=== PATIENT | female | born 1985 | race Caucasian/White ===

== ENCOUNTER 2018-11-11 22:49 | Outpatient (CLI) | payer MEDICAID ==
[~2018-11-11] VITALS: Ht 152.4 cm; Wt 85.3 kg
[2018-11-11] MEDS ORDERED: PREN-93 PO (23:07)
[2018-11-11 23:09] VITALS: BP 105/61; PULSE 78; RESP 20
--- NOTE | 2018-11-12 00:55 | PN ---
Triage Information Date/Time Reason for visit: back pain Weeks of Gestation 31 weeks by 11/11/18 US /Para Diabetes: none Hypertention: none Objective Vital Signs Date Temp Pulse Resp B/P (MAP) Pulse Ox O2 O2 Flow FiO2 Time Delivery Rate 11/11/18 98.1 78 20 105/61 Room Air 23:09 (76) Contractions: >10 Minutes Apart Results/Medications Results 24 hrs Laboratory Tests Test 11/11/18 22:45 Urine Color YELLOW Urine Clarity SLIGHTLY CLOUDY A Urine pH 6.0 Urine Specific [place] 1.021 Urine Ketones TRACE A Urine Nitrite NEGATIVE Urine Bilirubin NEGATIVE Urine Urobilinogen 2+ H Urine Leukocyte Esterase NEGATIVE Urine Microscopic RBC 0 Urine Microscopic WBC 4 Urine Squamous Epithelial Cells MODERATE Urine Hemoglobin NEGATIVE Urine Glucose NEGATIVE Urine Total Protein NEGATIVE Assessment/Plan IUP 31 weeks by today US, patient unsure about dates sve close/thick no bleeding results reviewed US done patient feeling better BPP is done discharge home, labor percationts are given Follow up in 1 week with [facility] [employer] clininc instructiont are given CANDACE BARNEY MD Nov 12, 2018 00:55
--- NOTE | 2018-11-12 01:38 | TRIAGE ---
OB Triage Datetime Report Generated by CPN: 11/12/2018 01:38 Datetime: 11/12/2018 01:24 Labor Evaluation Frequency: 0 Monitor Mode: External Heart Rate FHR Baseline Rate: 125 Monitor Mode: External US Variability: Moderate 6-25 bpm Accelerations: 15X15 Decelerations: None Category: Category I Datetime: 11/12/2018 01:17 Monitor Mode: External US Datetime: 11/12/2018 01:00 Labor Evaluation Frequency: 0 Monitor Mode: External Heart Rate FHR Baseline Rate: 125 Monitor Mode: External US Variability: Moderate 6-25 bpm Accelerations: 15X15 Comments: broken tracing Pain Assessment Pain Scale: 0 Pain Presence: None/Denies Pain Type: N/A Datetime: 11/12/2018 00:54 Comments: difficult to maintain continuous monitoring due to frequent maternal repositioning Datetime: 11/12/2018 00:08 Vaginal Exam Dilatation (cms): 0.0 Effacement (%): 0 Station: -3 Exam By: dr arroyo Membrane Status: Intact Vaginal Bleeding: None Cervix, Consistency: Firm Cervix, Position: Posterior Presentation 'A': Cephalic Datetime: 11/12/2018 00:00 Labor Evaluation Frequency: 0 Monitor Mode: External Heart Rate FHR Baseline Rate: 125 Monitor Mode: External US Variability: Moderate 6-25 bpm Accelerations: 15X15 Decelerations: None Category: Category I Datetime: 11/11/2018 23:23 Labor Evaluation Frequency: 0 Monitor Mode: External Heart Rate FHR Baseline Rate: 125 Monitor Mode: External US Variability: Moderate 6-25 bpm Accelerations: 15X15 Decelerations: None Category: Category I Comments: U/S TECH AT BEDSIDE Datetime: 11/11/2018 23:20 EGA: 31.6 Datetime: 11/11/2018 23:18 Time of Arrival: 11/11/2018 22:40 Arrived By: Ambulatory Arrived From: Home Chief Complaint: back and abd pain Movement: Present Contractions: Irregular Time Contractions Began: 11/11/2018 16:00 Contractions: 30 MIN Rupture of Membranes: Denies Vaginal Bleeding: None Vaginal Discharge: Denies Recent Sexual Intercouse: Denies Abdominal Trauma: Not Applicable Patient Complaints: Contractions; Back Pain Time Provider Notified: 11/11/2018 23:04 Provider Notified: GALSTYAN Initial Plan: NST, U/A Datetime: 11/11/2018 23:00 Assessment Type: Triage Maternal Assessment Level of Consciousness: Fully Conscious DTR's/Clonus: DTRs 2+; No Clonus Headache: Denies Blurred Vision: No Respiratory Effort: Unlabored; Regular Rhythm; Equal Expansion Breath Sounds, Left: Clear and Equal Breath Sounds, Right: Clear and Equal Nausea/Vomiting: Denies RUQ Epigastric Pain: Denies Lower Extremities Edema: None Degree: None Upper Extremities Edema: None Degree: None Facial Edema: None Fall Risk Assessment History of Falling: (0) No Secondary Diagnosis: (0) No Ambulatory Aid: (0) Bedrest/Nurse Assist IV Therapy: (0) No Gait: (0) Normal/Bedrest/Immobile Mental Status: (0) Oriented to Own Ability Fall Score: 0 Fall Risk Score Definition: No Risk: No action required Datetime: 11/11/2018 22:58 Pain Assessment Pain Scale: 5 Pain Presence: Intermittent Pain Type: Contraction Pain Location: Abdomen; Back Pain Goal: 3 Pain Relief Measures: Comfort Measures
== END 2018-11-12 01:30 | disposition home or self-care (01) ==
LOC: L-D 22:49 → OBT 22:49
PROVIDERS: ATTEND Obstetrics & Gynecology
DX: O26.893 Other specified pregnancy related conditions, third trimester (principal); M54.9 Dorsalgia, unspecified; O36.8330 Maternal care for abnormalities of the fetal heart rate or rhythm, third trimester, not applicable or unspecified; Z3A.31 31 weeks gestation of pregnancy
CPT/HCPCS: 76815; 76818; 80307; 81001; Z7500; 81003; G0463

== ENCOUNTER 2018-11-17 06:40 | Outpatient (CLI) | payer MEDICAID ==
--- NOTE | 2018-11-12 05:28 | PN ---
Triage Information Date/Time back pain Reason for visit: back pain, no CVA tenderness Weeks of Gestation 31 11/10 /Para Diabetes: none Hypertention: none Disposition: IUP 11/10 with back pain, recieved IV hydration, improved, US done and reviewed, sve close/thick, discharge home, follow up in 1 week, labor percationts are given CANDACE BARNEY MD Nov 12, 2018 05:28
[~2018-11-17] VITALS: Ht 152.4 cm; Wt 83.3 kg
[~2018-11-17 06:40] MED LIST: PREN-93 PO
[2018-11-17 06:57] VITALS: BP 99/65; PULSE 75; RESP 18
--- NOTE | 2018-11-17 09:26 | TRIAGE ---
OB Triage Datetime Report Generated by CPN: 11/17/2018 09:25 Datetime: 11/17/2018 08:57 Stage of : OB Triage Datetime: 11/17/2018 07:54 Labor Evaluation Frequency: 0 Monitor Mode: External Pattern: Normal: <= 5 Contractions in 10 Minutes Resting Tone [place]: Relaxed Heart Rate FHR Baseline Rate: 125 Monitor Mode: External US Variability: Moderate 6-25 bpm Accelerations: 10X10 Decelerations: None Category: Category I Pain Assessment Pain Scale: 0 Pain Presence: None/Denies Pain Type: N/A Pain Goal: 3 Pain Relief Measures: Comfort Measures Datetime: 11/17/2018 07:01 Time of Arrival: 11/17/2018 06:39 EGA: 32.5 Arrived By: Wheelchair Arrived From: Home Chief Complaint: c/o RUQ and back pain w/ vomiting beg 0500 Movement: Present Contractions: Denies/Absent Rupture of Membranes: Denies Vaginal Bleeding: None Vaginal Discharge: Denies Recent Sexual Intercouse: Denies Abdominal Trauma: Not Applicable Patient Complaints: Back Pain; Nausea; Vomiting Time Provider Notified: 11/17/2018 06:45 Provider Notified: Dr Hairston Initial Plan: EFM,UA,URINE CULTURE, CBC,CMP,URIC ACID,AMYLASE,LIPASE,ABD U/S Datetime: 11/17/2018 06:52 Stage of : OB Triage Maternal Assessment Level of Consciousness: Keenly Alert, Responsive Headache: Denies Blurred Vision: No Nausea/Vomiting: Present RUQ Epigastric Pain: Denies Facial Edema: None Monitor Mode: External Resting Tone [place]: Relaxed Heart Rate FHR Baseline Rate: 130 Monitor Mode: External US Pain Assessment Pain Scale: 7 Pain Presence: Constant Pain Type: Sharp; Stabbing Pain Location: Abdomen; Back Pain Assessment Comments: C/ SM EMESIS Datetime: 11/17/2018 06:45 Stage of : OB Triage Datetime: 11/11/2018 23:20 EGA: 31.6 Datetime: 11/11/2018 23:00 Fall Risk Assessment Fall Score: 0 Fall Risk Score Definition: No Risk: No action required
--- NOTE | 2018-11-17 10:32 | PN ---
Triage Information Date/Time 11/17/18 Reason for visit: Abd/pelvic pain (RUQ pain with vomiting x1) Weeks of Gestation 32w5d /Para Diabetes: none Hypertention: none Objective Vital Signs Date Temp Pulse Resp B/P (MAP) Pulse Ox O2 O2 Flow FiO2 Time Delivery Rate 11/17/18 97.8 75 18 99/65 (76) Room Air 06:57 Heart Rate: 140's Contractions: None Results/Medications Result Diagram: 11/17/18 0744 11/17/18 0744 Results 24 hrs Laboratory Tests Test 11/17/18 06:45 11/17/18 07:44 Urine Color YELLOW Urine Clarity CLOUDY A Urine pH 7.0 Urine Specific [place] 1.010 Urine Ketones NEGATIVE Urine Nitrite NEGATIVE Urine Bilirubin NEGATIVE Urine Urobilinogen 1+ H Urine Leukocyte Esterase 1+ H Urine Microscopic RBC 4 Urine Microscopic WBC 11 H Urine Squamous Epithelial Cells MANY A Urine Bacteria FEW A Urine Mucus FEW A Urine Hemoglobin NEGATIVE Urine Glucose NEGATIVE Urine Total Protein 1+ H White Blood Count 8.1 Red Blood Count 4.09 L Hemoglobin 12.0 Hematocrit 35.8 L Mean Corpuscular Volume 87.5 Mean Corpuscular Hemoglobin 29.3 Mean Corpuscular Hemoglobin Concent 33.5 Red Cell Distribution Width 14.0 Platelet Count 234 Mean Platelet Volume 11.1 H Immature Granulocytes % 0.500 H Neutrophils % 76.6 Lymphocytes % 15.0 Monocytes % 6.5 Eosinophils % 1.0 Basophils % 0.4 Nucleated Red Blood Cells % 0.0 Immature Granulocytes # 0.040 H Neutrophils # 6.2 Lymphocytes # 1.2 Monocytes # 0.5 Eosinophils # 0.1 Basophils # 0.0 Nucleated Red Blood Cells # 0.0 Sodium Level 139 Potassium Level 3.5 Chloride Level 108 Carbon Dioxide Level 24 Anion Gap 7 Blood Urea Nitrogen 6 L Creatinine 0.51 Est Glomerular Filtrat Rate mL/min > 60 Glucose Level 94 Uric Acid 3.4 Calcium Level 9.0 Total Bilirubin 0.6 Direct Bilirubin 0.00 Indirect Bilirubin 0.6 Aspartate Amino Transf (AST/SGOT) 18 Alanine Aminotransferase (ALT/SGPT) 19 Alkaline Phosphatase 135 H Total Protein 6.4 Albumin 3.5 Globulin 2.90 Albumin/Globulin Ratio 1.20 Amylase Level 100 Lipase 302 H Imaging Results cholelithiasis Disposition: Discharge Assessment/Plan A IUP 32w5d RUQ pain cholelithiasis P discharge home ,f/u with her OB low fat diet increase fluid intake KWAN RODRIGUEZ MD Nov 17, 2018 10:32
== END 2018-11-17 09:10 | disposition home or self-care (01) ==
LOC: OBT 06:40 → L-D 06:40 → OBT 09:10
PROVIDERS: ATTEND Obstetrics & Gynecology
DX: O99.613 Diseases of the digestive system complicating pregnancy, third trimester (principal); K80.20 Calculus of gallbladder without cholecystitis without obstruction; R10.11 Right upper quadrant pain; Z3A.32 32 weeks gestation of pregnancy
CPT/HCPCS: 76705; 80053; 81001; 82150; 83690; 84560; 85025; Z7500; G0463

== ENCOUNTER 2018-11-17 12:50 | Outpatient (CLI) | payer MEDICAID ==
[~2018-11-17] VITALS: Ht 152.4 cm; Wt 84.3 kg
[2018-11-17 13:08] VITALS: BP 101/64; PULSE 90; Ht 152.4 cm; Wt 84.3 kg
--- NOTE | 2018-11-17 14:54 | TRIAGE ---
OB Triage Datetime Report Generated by CPN: 11/17/2018 14:54 Datetime: 11/17/2018 14:30 Frequency: x1 Monitor Mode: External Duration (sec)2399: 40 Quality: Mild Pattern: Normal: <= 5 Contractions in 10 Minutes Resting Tone [place]: Relaxed FHR Baseline Rate: 130 Monitor Mode: External US FHR Baseline Changes: No Baseline Change Variability: Moderate 6-25 bpm Accelerations: 15X15 Decelerations: None Category: Category I Pain Scale: 0 Pain Presence: None/Denies Pain Type: N/A Pain Goal: 3 Membrane Status: Intact Datetime: 11/17/2018 14:29 Comments: Dr. Hairston at bedside to review strip, BPP and EFW. New order to send pt home Datetime: 11/17/2018 14:24 Comments: Pt sitting up eating her sandwich Datetime: 11/17/2018 14:21 Comments: Pt request something to eat, sandwich provided and juices. Datetime: 11/17/2018 13:03 Stage of : OB Triage Assessment Type: Triage Level of Consciousness: Keenly Alert, Responsive DTR's/Clonus: DTRs 2+; No Clonus Headache: Denies Blurred Vision: No Respiratory Effort: Unlabored; Regular Rhythm; Equal Expansion Breath Sounds, Left: Clear and Equal Breath Sounds, Right: Clear and Equal Nausea/Vomiting: Denies RUQ Epigastric Pain: Denies Facial Edema: None Temperature Route: Axillary History of Falling: (0) No Secondary Diagnosis: (0) No Ambulatory Aid: (0) Bedrest/Nurse Assist IV Therapy: (0) No Gait: (0) Normal/Bedrest/Immobile Mental Status: (0) Oriented to Own Ability Fall Score: 0 Fall Risk Score Definition: No Risk: No action required Frequency: 0 Monitor Mode: External Pattern: Normal: <= 5 Contractions in 10 Minutes Resting Tone [place]: Relaxed FHR Baseline Rate: 135 Monitor Mode: External US Variability: Moderate 6-25 bpm Pain Scale: 0 Pain Presence: None/Denies Pain Type: N/A Pain Goal: 3 Pain Relief Measures: Comfort Measures Datetime: 11/17/2018 13:02 Time of Arrival: 11/17/2018 12:40 EGA: 32.5 Arrived By: Ambulatory Arrived From: Dr. Randall Chief Complaint: REFERRED FROM DR. OLGUIN A NEW OB PT FOR BPP,EFW, DENIES LEAKING, BLEEDING OR U C'S Movement: Present Contractions: Denies/Absent Rupture of Membranes: Denies Vaginal Bleeding: None Vaginal Discharge: Denies Recent Sexual Intercouse: Denies Abdominal Trauma: Not Applicable Patient Complaints: Dizziness Time Provider Notified: 11/17/2018 14:29 Provider Notified: Dr. Hairston Initial Plan: MONITOR, BPP, EFW
--- NOTE | 2018-12-18 18:35 | PN ---
Triage Information Date/Time 12/18/18 late entry for service rendered on 11/17/18 Reason for visit: sent for BPP NST EFW from clinic for new patient evaluation Weeks of Gestation 32w5d /Para ? Diabetes: none Hypertention: none Objective Heart Rate: 140's Heart Rate Comments CAT I Contractions: None Results/Medications Imaging Results [facility] 01/11 CECE 11.1 EFW 1920gm Disposition: Discharge Assessment/Plan A IUP 32w5d Nl antepartum test P discharge home ,f/u with her OB KWAN RODRIGUEZ MD Dec 18, 2018 18:35
== END 2018-11-17 14:58 | disposition home or self-care (01) ==
LOC: OBT 12:50 → L-D 12:52 → OBT 14:58
PROVIDERS: ATTEND Obstetrics & Gynecology
DX: O26.893 Other specified pregnancy related conditions, third trimester (principal); R42 Dizziness and giddiness; Z3A.32 32 weeks gestation of pregnancy
CPT/HCPCS: 76815; 76816; 76818; Z7500; G0463

== ENCOUNTER 2018-12-08 15:38 | Outpatient (CLI) | payer MEDICAID ==
[~2018-12-08] VITALS: Ht 149.9 cm; Wt 83.4 kg
[2018-12-08 17:04] VITALS: BP 100/70; PULSE 99; RESP 18; Ht 149.9 cm; Wt 83.4 kg
--- NOTE | 2018-12-08 17:47 | TRIAGE ---
OB Triage Datetime Report Generated by CPN: 12/08/2018 17:47 Datetime: 12/08/2018 17:37 Labor Evaluation Pattern: Normal: <= 5 Contractions in 10 Minutes Resting Tone [place]: Relaxed Contraction Comments: no uc Heart Rate FHR Baseline Rate: 135 Variability: Moderate 6-25 bpm Accelerations: 15X15 Decelerations: None Category: Category I Comments: reactive nst Pain Assessment Pain Presence: None/Denies Pain Type: N/A Datetime: 12/08/2018 17:08 Assessment Type: Triage Maternal Assessment Level of Consciousness: Keenly Alert, Responsive DTR's/Clonus: DTRs 2+; No Clonus Headache: Denies Blurred Vision: No Respiratory Effort: Unlabored; Regular Rhythm; Equal Expansion Breath Sounds, Left: Clear and Equal Breath Sounds, Right: Clear and Equal Nausea/Vomiting: Denies RUQ Epigastric Pain: Denies Lower Extremities Edema: None Degree: None Upper Extremities Edema: None Degree: None Facial Edema: None Fall Risk Assessment History of Falling: (0) No Secondary Diagnosis: (0) No Ambulatory Aid: (0) Bedrest/Nurse Assist IV Therapy: (0) No Gait: (0) Normal/Bedrest/Immobile Mental Status: (0) Oriented to Own Ability Fall Score: 0 Fall Risk Score Definition: No Risk: No action required Datetime: 12/08/2018 17:06 Time of Arrival: 12/08/2018 15:21 EGA: 35.1 Arrived By: Ambulatory Arrived From: Office Chief Complaint: PT. to ob triage from md office with prescription for bpp, efw due to decreased fm Movement: Decreased Contractions: Denies/Absent Rupture of Membranes: Denies Vaginal Bleeding: None Vaginal Discharge: Denies Recent Sexual Intercouse: Denies Abdominal Trauma: Not Applicable Patient Complaints: Other Time Provider Notified: 12/08/2018 17:37 Provider Notified: Initial Plan: bpp, efw Datetime: 11/17/2018 13:03 Fall Score: 0 Fall Risk Score Definition: No Risk: No action required Datetime: 11/17/2018 13:02 EGA: 32.1 Datetime: 11/17/2018 07:01 EGA: 32.1 Datetime: 11/11/2018 23:20 EGA: 31.2 Datetime: 11/11/2018 23:00 Fall Score: 0 Fall Risk Score Definition: No Risk: No action required
--- NOTE | 2018-12-08 19:51 | PN ---
Triage Information Date/Time 10/22/1946 Reason for visit: DFM Weeks of Gestation 35w1d /Para Objective Vital Signs Date Temp Pulse Resp B/P (MAP) Pulse Ox O2 O2 Flow FiO2 Time Delivery Rate 12/08/18 98.1 99 18 100/70 17:04 (80) Results/Medications Imaging Results BPP 8/8 Bernadette 11.1cm EFW 2500gm 35%tile Disposition: Discharge Assessment/Plan A IUP 35w1d DFM P discharge home f/u with her OB KWAN RODRIGUEZ MD Dec 08, 2018 19:51
== END 2018-12-08 17:58 | disposition home or self-care (01) ==
LOC: L-D 15:38 → OBT 15:38 → L-D 16:06 → OBT 17:58
PROVIDERS: ATTEND Obstetrics & Gynecology
DX: O36.8130 Decreased fetal movements, third trimester, not applicable or unspecified (principal); Z3A.35 35 weeks gestation of pregnancy
CPT/HCPCS: 76815; 76818; Z7500; G0463

== ENCOUNTER 2019-01-06 00:09 | Inpatient (IN) | payer MEDICAID ==
[~2019-01-06] VITALS: Ht 147.3 cm; Wt 85.5 kg
[2019-01-06 00:46] VITALS: Ht 147.3 cm; Wt 85.5 kg
[2019-01-06 00:47] VITALS: BP 146/89; PULSE 63; RESP 16
[2019-01-06] MEDS ORDERED: LACTATED RINGER'S 1,000 ML IV PRN (00:48)
[2019-01-06] MEDS ORDERED: LACTATED RINGER'S 1,000 ML IV SCH (00:48)
[2019-01-06] MEDS ORDERED: MISOPROSTOL 200 MCG TAB PR PRN ×2 (01:00→09:30)
[2019-01-06] MEDS ORDERED: METHYLERGONOVINE 0.2 MG INJ IM PRN ×2 (01:00→09:30)
[2019-01-06] MEDS ORDERED: OXYTOCIN 30 UNITS/LR 500 ML IV SCH ×3 (01:00→09:30)
[2019-01-06] MEDS ORDERED: OXYTOCIN 30 UNITS/LR 500 ML IV PRN ×2 (01:00→09:30)
[2019-01-06] MEDS ORDERED: CARBOPROST 250 MCG INJ IM PRN ×2 (01:00→09:30)
[2019-01-06] MEDS ORDERED: LIDOCAINE 1% (MPF) 30 ML INJ INJ PRN (01:00)
--- NOTE | 2019-01-06 01:24 | HP ---
Date/Time of Note Date/Time of Note DATE: 01/06/19 TIME: 01:22 OB - History Hx of Present Free Text/Dictation 33-year-old 4 para 3 at 39+ weeks of gestation with estimated date of delivery January 11, 2019 Patient presents with regular contractions and active labor She reports positive movement, denies vaginal bleeding or leaking fluid Patient's blood pressure 146/89 GBS status is negative Patient is positive for chlamydia Estimated Due Date: Jan 11, 2019 : 4 Para: 3 Care: Good Care Obstetrical Complications: Gestational Hypertension Past Family/Social History * Past Medical, Surgical, Family and Obstetric Histories reviewed from chart. OB Admission Exam Vital Signs Vital Signs Vital Signs Date Temp Pulse Resp B/P (MAP) Pulse Ox O2 O2 Flow FiO2 Time Delivery Rate 01/06/19 97.7 63 16 146/89 Room Air 00:47 (108) Physical Exam HEENT: WNL Heart: Rhythm Normal Lungs: Clear, Equal Abdomen: WNL Extremities: Normal Reflexes: Normal Cervical Dilatation: 4cm Effacement: 75% Station: -2 Membranes: Intact Heart Rate: 140's Accelerations: Accelerations Present Decelerations: No Decelerations Varibility: Moderate Contractions on Admission: < 5 Minutes Apart Intensity: Moderate Last 72 hours Lab Results Hematology - 72 Hrs Test 01/06/19 01:15 Hematocrit 37.8 % (37.0-47.0) Hemoglobin 12.8 g/dl (12.0-16.0) Mean Corpuscular Hemoglobin 29.4 pg (29.0-33.0) Mean Corpuscular Hemoglobin Concent 33.9 g/dl (32.0-37.0) Mean Corpuscular Volume 86.7 fl (82.0-101.0) Mean Platelet Volume 11.7 fl (7.4-10.4) H Platelet Count 249 10^3/UL (140-415) Red Blood Count 4.36 10^6/ul (4.20-5.40) Red Cell Distribution Width 14.0 % (11.5-14.5) White Blood Count 7.7 10^3/ul (4.8-10.8) Chemistry Test 01/06/19 01:15 Sodium Level 140 mmol/L (135-144) Potassium Level 3.9 mmol/L (3.5-5.1) Chloride Level 111 mmol/L (97-110) H Carbon Dioxide Level 20 mmol/L (21-31) L Anion Gap 9 (5-13) Blood Urea Nitrogen 9 mg/dl (7-20) Creatinine 0.49 mg/dl (0.44-1.00) Est Glomerular Filtrat Rate mL/min > 60 mL/min (>60) Glucose Level 106 mg/dl (70-220) Uric Acid 4.3 mg/dl (3.1-7.9) Calcium Level 9.4 mg/dl (8.4-10.2) Total Bilirubin 0.5 mg/dl (0.2-1.3) Direct Bilirubin 0.00 mg/dl (0.00-0.20) Indirect Bilirubin 0.5 mg/dl (0-1.1) Aspartate Amino Transf (AST/SGOT) 21 IU/L (15-46) Alanine Aminotransferase (ALT/SGPT) 16 IU/L (13-69) Alkaline Phosphatase 245 IU/L (42-121) H Total Protein 6.9 g/dl (6.1-8.1) Albumin 3.7 g/dl (3.3-4.9) Globulin 3.20 g/dl (1.3-3.2) Albumin/Globulin Ratio 1.15 Urine Results - 72 Hrs Test 01/06/19 02:32 Urine Color YELLOW (YELLOW) Urine Clarity CLEAR (CLEAR) Urine pH 6.0 (5.0-9.0) Urine Specific [place] 1.017 (1.003-1.030) Urine Ketones NEGATIVE mg/dL (NEGATIVE) Urine Nitrite NEGATIVE mg/dL (NEGATIVE) Urine Bilirubin NEGATIVE mg/dL (NEGATIVE) Urine Urobilinogen 1+ mg/dL (NEGATIVE) H Urine Leukocyte Esterase NEGATIVE Stephanie/ul Urine Hemoglobin NEGATIVE mg/dL (NEGATIVE) Urine Glucose NEGATIVE mg/dL (NEGATIVE) Urine Total Protein NEGATIVE mg/dl (NEGATIVE) PROCEDURE: US OB. CLINICAL INDICATION: Size and dates TECHNIQUE: Multiple sonographic images of the pelvis and gravid uterus were obtained. The images were reviewed on a PACS workstation. COMPARISON: No prior studies are available for comparison. FINDINGS: Gestation: Single live intrauterine gestation. Cardiac activity: 138 beats per minute. Presentation: Vertex. Placenta: Location: Right lateral Appearance: No previa or abruption. Measurements: BPD = 8.1 cm, 32 weeks and 4 days HC = 28.6 cm, 31 weeks and 3 days AC = 28.4 cm, 32 weeks and 3 days FL = 6.2 cm, 31 weeks and 6 days Gestational Age: AUA estimated gestational age: 32 weeks 1 day LMP estimated gestational age: 32 weeks 5 days AUA estimated date of delivery: 01/11/19 The EFW = 1920 g, 24.8%ile based on LMP age. RPTAT: AA IMPRESSION: Single live intrauterine gestation of 32 weeks 1 day by ultrasound criteria. .Parker Allred MD, MD Date Time Electronically viewed and signed by .Parker Allred MD, MD on 11/17/2018 13:34 .S/ CC: ANN HARRIS MD [phone] OB Assessment/Plan Reason for admission: active labor Plan: Expectant Management Other plan: Admit to labor and delivery PIH labs within normal limits Azithromycin for treatment of chlamydia Pain meds as needed Copies To: CC: ANN HARRIS MD ; DONA HOROWITZ MD Jan 06, 2019 01:24
--- NOTE | 2019-01-06 01:50 | PREAC ---
Date/Time of Note Date/Time of Note DATE: 01/06/19 TIME: 01:49 Anesthesia Eval and Record Evaluation Time Pre-Procedure Interview DATE: 01/06/19 TIME: 01:49 Age 33 Sex female NPO: 8 hrs Preoperative diagnosis IUP Planned procedure L&D Epidural Past Medical History Past Medical History: Includes GI: Obesity : : Surgery & Anesthesia Issues No known issue Meds Anticoagulation: No Beta Darrell within 24 hr: No Reason Beta Darrell not given: Pt. not on B-Darrell Reported Medications Vit No.124/Iron/FA ( Vitamin Tablet) 1 Each Tablet, 1 EACH PO DAILY, TAB 11/11/18 Current Medications Lactated Ringer's 1,000 ml @ 125 mls/hr Q8H IV ; Start 01/06/19 at 00:48 Lidocaine (Xylocaine 1% (Mpf)) 30 ml ONCE PRN INJ .EPISIOTOMY; Start 01/06/19 at 01:00 Oxytocin/Lactated Ringer's 500 ml @ 500 mls/hr ONCE POST IV ; Start 01/06/19 at 01:00 Oxytocin/Lactated Ringer's 500 ml @ 125 mls/hr POST IV ; Start 01/06/19 at 01:00 Lactated Ringer's 1,000 ml @ 2,000 mls/hr Q30M PRN IV .ANESTHESIA; Start 01/06/19 at 00:48 Oxytocin/Lactated Ringer's 500 ml @ 0 mls/hr ONCE PRN IV .VAGINAL BLEEDING; Start 01/06/19 at 01:00 Methylergonovine Maleate (Methergine) 0.2 mg ONCE PRN IM .VAGINAL BLEEDING; Start 01/06/19 at 01:00 Carboprost Tromethamine (Hemabate) 250 mcg ONCE PRN IM .VAGINAL BLEEDING; Start 01/06/19 at 01:00 Misoprostol (Cytotec) 1,000 mcg ONCE PRN LA .VAGINAL BLEEDING; Start 01/06/19 at 01:00 Meds reviewed: Yes Allergies Coded Allergies: No Known Allergies (Verified Allergy, Unknown, 11/17/18) Allergies Reviewed: Yes Labs/Studies Labs Reviewed: Reviewed by anesthesiologist Result Diagram: 01/06/19 0115 Laboratory Tests 01/06/19 01:15 test: Positive Studies: ECG Pre-procedure Exam Last vitals Vital Signs Date Temp Pulse Resp B/P (MAP) Pulse Ox O2 O2 Flow FiO2 Time Delivery Rate 01/06/19 97.7 63 16 146/89 Room Air 00:47 (108) Airway: Adequate mouth opening, Adequate thyromental dist Mallampati: Mallampati II Teeth: Normal Lung: Normal Heart: Normal ASA Physical Status ASA physical status: 2 Emergency: None Planned Anesthetic Neuraxial: Epidural Planned Pain Management Epidural, Parenteral pain med Pre-operative Attestations Prior to commencing anesthesia and surgery, the patient was re-evaluated, there was verification of: *The patient's identity *The results of appropriate recent lab work and preoperative vital signs *The above evaluation not changing prior to induction *Anesthetic plan, risk benefits, alternative and complications discussed with patient/family; questions answered; patient/family understands, accepts and wishes to proceed. BERTO DICK MD Jan 06, 2019 01:50
[2019-01-06] MEDS ORDERED: FENTAnyl 2MCG/ML-ROPIV 0.2% 100 ML ONE (01:53)
[2019-01-06] MEDS ORDERED: FENTAnyl 2MCG/ML-ROPIV 0.2% 100 ML BAG EPI SCH (02:00)
[2019-01-06] MEDS ORDERED: DIPHENHYDRAMINE 50 MG INJ IV PRN (02:00)
[2019-01-06] MEDS ORDERED: NALOXONE (0.4 MG/ML) INJ IV PRN (02:00)
[2019-01-06] MEDS ORDERED: ONDANSETRON 4 MG INJ IV PRN ×2 (02:00→09:30)
--- NOTE | 2019-01-06 03:27 | TRIAGE ---
OB Triage Datetime Report Generated by CPN: 01/06/2019 03:26 Datetime: 01/06/2019 03:00 Stage of : Labor Maternal Assessment Level of Consciousness: Keenly Alert, Responsive Labor Evaluation Frequency: 4-6 Monitor Mode: External Duration (sec)2399: 30-70 Quality: Moderate Pattern: Normal: <= 5 Contractions in 10 Minutes Resting Tone [place]: Relaxed Heart Rate FHR Baseline Rate: 125 Monitor Mode: External US Variability: Moderate 6-25 bpm Accelerations: 15X15 Decelerations: Variable Category: Category II Datetime: 01/06/2019 02:44 Vaginal Exam Dilatation (cms): 7.0 Effacement (%): 80 Station: -2 Exam By: ROLANDA Datetime: 01/06/2019 02:30 Stage of : Labor Maternal Assessment Level of Consciousness: Keenly Alert, Responsive Labor Evaluation Frequency: OCCASIONAL Monitor Mode: External Duration (sec)2399: 60 Quality: Moderate Pattern: Normal: <= 5 Contractions in 10 Minutes Resting Tone [place]: Relaxed Heart Rate FHR Baseline Rate: 125 Monitor Mode: External US Variability: Moderate 6-25 bpm Accelerations: None Decelerations: None Category: Category I Datetime: 01/06/2019 02:25 Vaginal Exam Dilatation (cms): 6.0 Effacement (%): 70 Station: -2 Exam By: EMARTIN Datetime: 01/06/2019 02:15 Maternal Assessment Level of Consciousness: Keenly Alert, Responsive Pain Assessment Pain Scale: 5 Datetime: 01/06/2019 02:08 Maternal Assessment Level of Consciousness: Keenly Alert, Responsive Datetime: 01/06/2019 02:05 Maternal Assessment Level of Consciousness: Keenly Alert, Responsive Datetime: 01/06/2019 02:02 Maternal Assessment Level of Consciousness: Keenly Alert, Responsive Datetime: 01/06/2019 02:00 Stage of : Labor Maternal Assessment Level of Consciousness: Keenly Alert, Responsive Labor Evaluation Frequency: IRREGULAR Monitor Mode: External Quality: Moderate Pattern: Normal: <= 5 Contractions in 10 Minutes Resting Tone [place]: Relaxed Monitor Mode: External US Variability: Moderate 6-25 bpm Accelerations: 15X15 Decelerations: None Category: Category I Datetime: 01/06/2019 01:53 Maternal Assessment Level of Consciousness: Keenly Alert, Responsive Temperature Route: Oral Pain Assessment Pain Scale: 10 Datetime: 01/06/2019 01:30 Maternal Assessment Level of Consciousness: Keenly Alert, Responsive Labor Evaluation Frequency: IRREGULAR Monitor Mode: External Quality: Moderate Pattern: Normal: <= 5 Contractions in 10 Minutes Resting Tone [place]: Relaxed Heart Rate FHR Baseline Rate: 135 Monitor Mode: External US Variability: Moderate 6-25 bpm Accelerations: 15X15 Decelerations: None Category: Category I Datetime: 01/06/2019 01:11 Assessment Type: Admission Assessment Maternal Assessment Level of Consciousness: Keenly Alert, Responsive DTR's/Clonus: DTRs 2+; No Clonus Headache: Denies Blurred Vision: No Respiratory Effort: Unlabored; Regular Rhythm; Equal Expansion Breath Sounds, Left: Clear and Equal Breath Sounds, Right: Clear and Equal Nausea/Vomiting: Denies RUQ Epigastric Pain: Denies Facial Edema: None Fall Risk Assessment History of Falling: (0) No Secondary Diagnosis: (0) No Ambulatory Aid: (0) Bedrest/Nurse Assist IV Therapy: (0) No Gait: (0) Normal/Bedrest/Immobile Mental Status: (0) Oriented to Own Ability Fall Score: 0 Fall Risk Score Definition: No Risk: No action required Datetime: 01/06/2019 01:00 Stage of : Labor Labor Evaluation Frequency: 6-7 Monitor Mode: External Duration (sec)2399: 40-70 Quality: Moderate Pattern: Normal: <= 5 Contractions in 10 Minutes Resting Tone [place]: Relaxed Heart Rate FHR Baseline Rate: 130 Monitor Mode: External US FHR Baseline Changes: No Baseline Change Variability: Moderate 6-25 bpm Accelerations: 15X15 Decelerations: None Category: Category I Comments: points of loss of contact Pain Assessment Pain Scale: 4 Pain Presence: Intermittent Pain Type: Contraction Pain Location: Abdomen; Back; Perineum Pain Relief Measures: Comfort Measures Datetime: 01/06/2019 00:56 Time of Arrival: 01/06/2019 00:45 EGA: 39.2 Arrived By: Wheelchair Arrived From: Home Datetime: 01/06/2019 00:31 Assessment Type: Triage Maternal Assessment Level of Consciousness: Keenly Alert, Responsive DTR's/Clonus: DTRs 2+; No Clonus Headache: Denies Blurred Vision: No Respiratory Effort: Unlabored; Regular Rhythm; Equal Expansion Breath Sounds, Left: Clear and Equal Breath Sounds, Right: Clear and Equal Nausea/Vomiting: Denies RUQ Epigastric Pain: Denies Lower Extremities Edema: None Degree: None Upper Extremities Edema: None Degree: None Facial Edema: None Fall Risk Assessment History of Falling: (0) No Secondary Diagnosis: (0) No Ambulatory Aid: (0) Bedrest/Nurse Assist IV Therapy: (0) No Gait: (0) Normal/Bedrest/Immobile Mental Status: (0) Oriented to Own Ability Fall Score: 0 Fall Risk Score Definition: No Risk: No action required Datetime: 01/06/2019 00:30 Time of Arrival: 01/05/2019 23:59 EGA: 39.1 Arrived By: Wheelchair Arrived From: Home Chief Complaint: UC's since 2224 Movement: Present Contractions: Regular Time Contractions Began: 01/05/2019 22:25 Contractions: 6-7 Rupture of Membranes: Denies Vaginal Bleeding: None Vaginal Discharge: Denies Abdominal Trauma: Not Applicable Patient Complaints: Contractions Time Provider Notified: 01/06/2019 00:30 Provider Notified: Sil Initial Plan: EFM, vag exam, assessment, call MD for orders Datetime: 01/06/2019 00:28 Vaginal Exam Dilatation (cms): 3.5 Effacement (%): 70 Station: -2 Exam By: Johnathon Pena RN Datetime: 12/08/2018 17:43 Arrived By: Wheelchair Arrived From: Home Movement: Present Rupture of Membranes: Denies Vaginal Bleeding: None Vaginal Discharge: Denies Patient Complaints: Contractions Datetime: 12/08/2018 17:08 Fall Score: 0 Fall Risk Score Definition: No Risk: No action required Datetime: 12/08/2018 17:06 EGA: 35.1 Datetime: 11/17/2018 13:03 Fall Score: 0 Fall Risk Score Definition: No Risk: No action required Datetime: 11/17/2018 13:02 EGA: 32.1 Datetime: 11/17/2018 07:01 EGA: 32.1 Datetime: 11/11/2018 23:20 EGA: 31.2 Datetime: 11/11/2018 23:00 Fall Score: 0 Fall Risk Score Definition: No Risk: No action required
[2019-01-06] MEDS ORDERED: AZITHROMYCIN 500MG/NS (PMX) 250 ML IVPB SCH (04:00)
[2019-01-06 09:30] VITALS: BP 119/75; PULSE 64; RESP 18
[2019-01-06] MEDS ORDERED: ACETAMINOPHEN 325 MG TAB PO PRN ×2 (09:30)
[2019-01-06] MEDS ORDERED: SENNA/DOCUSATE NA (8.6MG/50MG) TAB PO PRN (09:30)
[2019-01-06] MEDS ORDERED: BENZOCAINE 20% 56 ML SPRAY TOP PRN (09:30)
[2019-01-06] MEDS ORDERED: LANOLIN HPA 1 PKT TOP PRN (09:30)
[2019-01-06] MEDS: LACTATED RINGER'S 1,000 ML IV* SCH ×2 (09:30→17:08)
[2019-01-06] MEDS ORDERED: MAGNESIUM HYDROXIDE 30ML CUP PO PRN (09:30)
[2019-01-06] MEDS ORDERED: WITCH HAZEL/GLYCERIN PAD PR PRN (09:30)
[2019-01-06] MEDS ORDERED: DIBUCAINE 1% 30 GM OINT TOP PRN (09:30)
--- NOTE | 2019-01-06 09:50 | LDN ---
Date/Time of Note Date/Time of Note DATE: 01/06/19 TIME: 09:43 Delivery Summary Full-term Placenta Delivered: Spontaneously Meconium: Thick Episiotomy: No Laceration repair: Superficial laceration repaired with 3-0 chromic Anesthesia type: Epidural Estimated blood loss: 100 Sponge & Needle done & correct: Yes All needle counts correct: Yes Any foreign bodies felt in the: No Delivery Information Sex Sex: female Apgars 1 Minute: 8 5 Minute: 9 Suctioning Nose & mouth suctioned at eufemia: Yes Delee suction performed: Yes Umbilical Cord Umbilical cord with: 3 Vessels Cord presentations: nuchal cord (X1 manually reduced) Cord Blood was obtained: Yes Mother & Baby Disposition Disposition Baby's weight 7 pounds 9 ounces/ 3425 g Mom & Baby to Maternity; Good: Yes Baby to NICU: No Copies To: CC: ANN HARRIS MD ; DONA HOROWITZ MD Jan 06, 2019 09:50
[2019-01-06] MEDS ORDERED: AZITHROMYCIN 500 MG TAB PO ONE (10:00)
[2019-01-06 11:20] VITALS: BP 121/72; PULSE 72; RESP 18
[2019-01-06] MEDS: IBUPROFEN 600 MG TAB PO PRN (13:23)
[2019-01-06 15:55] VITALS: BP 116/81; PULSE 69; RESP 18
[2019-01-06 20:20] VITALS: BP 123/79; PULSE 80; RESP 18
[2019-01-07] VITALS: BP 106/57; PULSE 71; RESP 18
[2019-01-07] MEDS: LACTATED RINGER'S 1,000 ML IV* SCH (01:30)
[2019-01-07 04:00] VITALS: BP 114/67; PULSE 71; RESP 18
[2019-01-07] MEDS: IBUPROFEN 600 MG TAB PO PRN ×3 (04:06→23:44)
[2019-01-07 07:45] VITALS: BP 120/80; PULSE 77; RESP 18
[2019-01-07 16:05] VITALS: BP 112/62; PULSE 66; RESP 18
--- NOTE | 2019-01-07 16:25 | PD.PPDC ---
FLOORING PROFESSIONAL Discharge Instruction Condition [id number] Patient Condition: [id number] Good Diet [id number] Diet: Zzbpd8s Resume Regular Diet Activity/Restrictions [id number] Activity: [id number] Normal Activity May Shower Follow-up Follow-up with Physician: 3, Week/Weeks Return to clinic for [id number] HOURLY MANAGER Instructions: [id number] Fever greater than 101 Chills Worsening abdominal pain Excessive Vaginal Bleeding More than 2 pads per hour Unable to tolerate diet [id number] OB Instructions: Klwji1u Breast Tenderness Depression Blurried Vision Headache [id number] Surgical Instructions: Izqsb9e Incisional Drainage Incisional Redness ANN HARRIS MD Jan 07, 2019 16:25
--- NOTE | 2019-01-07 16:27 | DS ---
Date/Time of Note Date/Time of Note DATE: 01/07/19 TIME: 16:26 Obstetrical Discharge Record Final Diagnosis Final Diagnosis: Term delivered Vaginal Delivery Obstetrical Delivery: Spontaneous Condition on Discharge Physical Assessment Last Vitals: stable afebrile Voiding: Yes Bowel Movement: Yes Breast: Soft, non-tender, Filling Fundus: Firm Abdomen and Incision: soft nt Calf Tenderness: No Patient Condition: Fair ANN HARRIS MD Jan 07, 2019 16:27
[2019-01-07 20:00] VITALS: BP 133/79; PULSE 70; RESP 18
[2019-01-08 04:15] VITALS: BP 124/79; PULSE 73; RESP 18
[2019-01-08] MEDS: IBUPROFEN 600 MG TAB PO PRN ×2 (06:33→14:42)
[2019-01-08 08:00] VITALS: BP 121/84; PULSE 79; RESP 17
--- NOTE | 2019-01-09 17:20 | DELSUM ---
Delivery Summary A-C Datetime Report Generated by CPN: 01/09/2019 17:19 DELIVERY PERSONNEL Cabin Outfitter: ALDEN, TRACY MATERNAL INFORMATION Delivery Anesthesia: Epidural Medications in Delivery: LR W/30 UNITS PITOCIN Delivery QBL (ml): 100 Placenta Cultured: No Maternal Complications: None LABOR SUMMARY EDC: 01/11/2019 00:00 No. Babies in Womb: 1 Attempted: No Labor Anesthesia: Epidural LABOR INFORMATION Reason for Induction: Not Applicable Onset of Labor: 01/05/2019 22:25 Complete Dilatation: 01/06/2019 06:23 Group B Beta Strep: Negative Antibiotics # of Doses: 1 Antibiotics Time of Last Dose: 01/06/2019 03:43 Steroids Given: None Reason Steroids Not Administered: Not Applicable MEMBRANES Membranes Rupture Method: Spontaneous Rupture of Membranes: 01/06/2019 06:45 Length of Rupture (hr): 0.00 Amniotic Fluid Color: Heavy Meconium Amniotic Fluid Amount: Moderate Amniotic Fluid Odor: None STAGES OF LABOR Stage 1 hr: 7 Stage 1 min: 58 Stage 2 hr: 0 Stage 2 min: 22 Stage 3 hr: 0 Stage 3 min: 1 Total Time in Labor hr: 8 Total Time in Labor min: 21 VAGINAL DELIVERY Episiotomy: None Laceration Extension: N/A Laceration Type: Perineal Other Laceration: SUPERFICIAL PERINEAL LACERATION Laceration Repair: Yes Initial Vag Sponge Count: 10 Final Vag Sponge Count: 10 Initial Vag Sharps Count: 1 Final Vag Sharps Count: 2 Sponge Count Correct: Yes; Vaginal Sweep Performed Sharps Count Correct: Yes BABY A INFORMATION Infant Delivery Date/Time: 01/06/2019 06:45 Method of Delivery: Vaginal Born in Route : No : N/A Forceps: N/A Vacuum Extraction: N/A Shoulder Dystocia : N/A SHOULDER DYSTOCIA BABY A Infant Delivery Date/Time: 01/06/2019 06:45 PRESENTATION/POSITION BABY A Presentation: Cephalic Cephalic Presentation: Vertex Breech Presentation: N/A PLACENTA INFORMATION BABY A Placenta Delivery Time : 01/06/2019 06:46 Placenta Method of Delivery: Spontaneous Placenta Status: Delivered SCORES BABY A Heart Rate 1 min: >100 bpm Resp Effort 1 min: Good Cry Reflex Irritability 1 min: Cough/Sneeze/Pulls Away Muscle Tone 1 min: Active Motion Color 1 min: Blue/Pale Resuscitation Effort 1 min: Tactile Stimulation SCORE 1 MIN: 8 Heart Rate 5 min: >100 bpm Resp Effort 5 min: Good Cry Reflex Irritability 5 min: Cough/Sneeze/Pulls Away Muscle Tone 5 min: Active Motion Color 5 min: Body [place], Extremit Blue Resuscitation Effort 5 min: Tactile Stimulation SCORE 5 MIN: 9 INFANT INFORMATION BABY A Gestational Age at Delivery: 39.2 Gestational Status: Full Term- 39- 40.6 Weeks Infant Outcome : Liveborn, with signs of life Condition : Stable Infant Sex: Female IDENTIFICATION/MEDS BABY A ID Band Number: [id number] ID Band Location: Right Leg; Taped to Bed Sensor Applied: Yes Sensor Number: [id number] Sensor Location : Cord Clamp Vitamin K Given : Not Given Erythromycin Given: Not Given WEIGHT/LENGTH BABY A Infant Birthweight (gm): 3425 Infant Weight (lb): 7 Infant Weight (oz): 9 Length (in): 20.00 Infant Length (cm): 50.80 CORD INFORMATION BABY A No. Cord Vessels: 3 Nuchal Cord : Around Neck x1, Loose Cord Blood Taken: Yes Suction: Mouth; Nose ASSESSMENT BABY A Complications: Multiple Variable Decels Physical Findings at Delivery: Within Normal Limits Infant Respirations: Appears Normal Projector Booth Operator/ALS Called : Yes Infant Care By: RT/RN Transferred To: Remains with Mother
== END 2019-01-08 16:30 | disposition home or self-care (01) | DRG 806 ==
LOC: OBT 00:09 → L-D 00:10 → OBT 00:45 → L-D 01:24 → PP1 09:20
PROVIDERS: ADMIT Obstetrics & Gynecology; ATTEND Obstetrics & Gynecology
PROC: 10E0XZZ Delivery of Products of Conception, External Approach (ICD-10-PCS; principal; 2019-01-06)
PROC: 0HQ9XZZ Repair Perineum Skin, External Approach (ICD-10-PCS; 2019-01-06)
PROC: 4A1HXCZ Monitoring of Products of Conception, Cardiac Rate, External Approach (ICD-10-PCS; 2019-01-06)
DX: O13.4 Gestational [pregnancy-induced] hypertension without significant proteinuria, complicating childbirth (principal); O98.32 Other infections with a predominantly sexual mode of transmission complicating childbirth; Z37.0 Single live birth; O69.81X0 Labor and delivery complicated by cord around neck, without compression, not applicable or unspecified; Z3A.39 39 weeks gestation of pregnancy; A56.8 Sexually transmitted chlamydial infection of other sites; O99.214 Obesity complicating childbirth; O70.0 First degree perineal laceration during delivery
CPT/HCPCS: 62322; 80053; 80307; 81003; 84560; 85025; 85610; 85730; 86592; 86850; 86900; 86901; 87340; 99464; G0463; J0456; J2590; J3010; J7120